=== PATIENT | female | born 1965 | race Caucasian/White ===

== ENCOUNTER → 2017-04-23 | Outpatient (CLI) | payer OTHER ==
[~2017-04-23] MED LIST: NAPROSYN500 MG PO; NOHOMEMEDICATIONS; NORCO 5-325 TA1 EACH PO; NORFLEX100 MG PO; PHENERGAN 25 MG25 M1 PO
== END ==
LOC: RAD 10:42
DX: Z12.31 Encounter for screening mammogram for malignant neoplasm of breast (principal)

== ENCOUNTER → 2020-05-02 | Outpatient (CLI) | payer OTHER | LOC: RAD 09:02 | PROVIDERS: ATTEND Family Medicine | DX: Z12.31 Encounter for screening mammogram for malignant neoplasm of breast (principal) ==

== ENCOUNTER → 2020-10-17 | Outpatient (CLI) | payer OTHER ==
[2020-10-17 10:20] LABS: ABSOLUTE NEUTROPHILS 4.8 thou/uL (1.4-8.2); BASOPHILS 0.2 % (0.0-2.0); EOSINOPHILS 0.8 % (0.0-3.0); HEMOGLOBIN 12.5 gm/dL (12.0-15.0); LYMPHOCYTES 22.9 % (24.0-44.0); MCH 28.1 pg (26.0-34.0); MCHC 33.6 g/dL (28.0-37.0); MCV 83.6 fL (80.0-100.0); MONOCYTES 6.8 % (1.0-8.0); PLATELET COUNT 207 thou/uL (150-400); POLYS 69.3 % (36.0-66.0); RBC 4.43 mil/uL (4.20-5.00); RDW 13.4 % (10.5-14.5); WBC 6.9 thou/uL (4.0-11.0)
[2020-10-17 10:53] LABS: ALBUMIN 3.5 g/dL (3.4-5.0); ANION GAP 8 mmol/L (7-16); BUN 18 mg/dL (7-18); CALCIUM 8.8 mg/dL (8.5-10.1); CHLORIDE 107 mmol/L (98-107); CHOLESTEROL 158 mg/dL (<200); CO2 29 mmol/L (21-32); CREATININE 0.8 mg/dL (0.6-1.0); GLUCOSE 97 mg/dL (74-106); HDL CHOLESTEROL 54 mg/dL (>40); LDL CHOLESTEROL 84 mg/dL (<100); POTASSIUM 3.6 mmol/L (3.5-5.1); SGOT 14 U/L (15-37); SGPT 20 U/L (30-65); SODIUM 144 mmol/L (136-145); TC:HDL 2.9 Ratio (Not establshd); TOTAL BILIRUBIN 0.3 mg/dL (0.2-1.0); TOTAL PROTEIN 8.3 g/dL (6.4-8.2); TRIGLYCERIDE 101 mg/dL (<150); VLDL 20 mg/dL (<40)
== END ==
LOC: RAD 09:33
PROVIDERS: ATTEND Family Medicine
DX: R07.89 Other chest pain (principal)

== ENCOUNTER → 2021-04-26 | Outpatient (CLI) | payer OTHER | LOC: RAD 08:43 | PROVIDERS: ATTEND Family Medicine | DX: Z12.31 Encounter for screening mammogram for malignant neoplasm of breast (principal); N64.89 Other specified disorders of breast ==